=== PATIENT | female | born 2000 | race Two or more races ===

== ENCOUNTER 2024-11-24 09:47 | Emergency (ER) | payer OTHER ==
[~2024-11-24] VITALS: Ht 157.5 cm; Wt 81.2 kg
[2024-11-24] MEDS ORDERED: FAMOtidine 10 MG/ML (4ML VIAL) IV ONE (10:30)
[2024-11-24] MEDS ORDERED: ACETAMINOPHEN 500 MG GEL..CAP PO ONE ×2 (10:30→10:38)
[2024-11-24] MEDS ORDERED: 0.9 % SODIUM CHLORIDE 1,000 ML IV ONE (10:30)
[2024-11-24] MEDS ORDERED: FAMOTIDINE/PF 20 MG/2 ML VIAL ONE (10:38)
[2024-11-24 11:11] LABS: BASO % 0.2 % (0.1-1.2); EOS # 0.02 (0.04-0.54); EOS % 0.1 % (0.7-7.0); LYMPH # 0.74 (1.18-3.74); LYMPH % 5.0 % (19.3-53.1); MEAN PLATELET VOLUME 9.50 fl (9.4-12.4); MONO # 0.58 (0.24-0.82); MONO % 3.9 % (4.7-12.5); NEUT # 13.42 (1.56-6.13); NEUT % 90.4 % (34.0-71.1); RED CELL DISTRIBUTION WIDTH 11.9 % (11.6-14.4)
[2024-11-24 12:23] LABS: ALT/SGPT 22.0 U/L (12-78); AST/SGOT 22.0 U/L (15-37); BILIRUBIN TOTAL 0.98 mg/dL (0.3-1.2); BUN CREA RATIO 8.0 (7.0-25.0); CREATININE SERUM 0.77 mg/dL (0.55-1.02); GFR 92.1; GLOBULINA 3.6 G/DL (2.4-3.5); GLUCOSE FASTING 97.0 mg/dL (65-100); OSMOLALITY SERUM 277.0 MOSM/KG (275-295)
[2024-11-24 12:24] LABS: COVID-19 AG NEGATIVE (NEGATIVE)
[2024-11-24] MEDS ORDERED: PEPCID AC20 MG PO (14:55)
[2024-11-24] MEDS ORDERED: AMOX1TAB5 PO (14:55)
[2024-11-24] MEDS ORDERED: CEFTRIAXONE SODIUM 2,000 MG in 0.9 % SODIUM CHLORIDE 100 ML IV ONE (15:00)
[2024-11-24] MEDS ORDERED: CEFTRIAXONE SODIUM 2,000 MG VIAL ONE (15:21)
== END 2024-11-24 16:35 | disposition home or self-care (01) ==
LOC: ER 09:47
PROVIDERS: General Practice
DX: B34.9 Viral infection, unspecified (principal); J02.8 Acute pharyngitis due to other specified organisms; Z20.822 Contact with and (suspected) exposure to COVID-19

== ENCOUNTER 2024-11-27 23:51 | Emergency (ER) | payer OTHER ==
[~2024-11-27] VITALS: Ht 157.5 cm; Wt 81.6 kg
[~2024-11-27 23:51] MED LIST: AMOX1TAB5 PO; PEPCID AC20 MG PO
[2024-11-28 01:46] LABS: BASO % 0.3 % (0.1-1.2); EOS # 0.17 (0.04-0.54); EOS % 2.4 % (0.7-7.0); LYMPH # 2.13 (1.18-3.74); LYMPH % 30.4 % (19.3-53.1); MEAN PLATELET VOLUME 9.30 fl (9.4-12.4); MONO # 0.78 (0.24-0.82); MONO % 11.1 % (4.7-12.5); NEUT # 3.88 (1.56-6.13); NEUT % 55.5 % (34.0-71.1); RED CELL DISTRIBUTION WIDTH 11.7 % (11.6-14.4)
[2024-11-28 01:59] LABS: LYMPHOCYTE MAN 29.0 %; MONOCYTE MAN 11.0 %; NEUTROPHILS MAN 54.0 %
[2024-11-28 02:08] LABS: ALT/SGPT 28.0 U/L (12-78); AST/SGOT 27.0 U/L (15-37); BILIRUBIN TOTAL 0.27 mg/dL (0.3-1.2); BUN CREA RATIO 10.0 (7.0-25.0); CREATININE SERUM 0.71 mg/dL (0.55-1.02); GFR 101.13; GLOBULINA 3.3 G/DL (2.4-3.5); GLUCOSE FASTING 108.0 mg/dL (65-100); OSMOLALITY SERUM 283.0 MOSM/KG (275-295)
[2024-11-28 02:48] LABS: COVID-19 AG NEGATIVE (NEGATIVE)
[2024-11-28] MEDS ORDERED: CEFTRIAXONE SODIUM 1,000 MG VIAL IM STA (02:49)
[2024-11-28] MEDS ORDERED: METHYLPREDNISOLONE SOD SUCC 40 MG VIAL IM STA (02:50)
[2024-11-28] MEDS ORDERED: CEFTRIAXONE SODIUM 1,000 MG VIAL ONE (03:05)
[2024-11-28] MEDS ORDERED: METHYLPREDNISOLONE SOD SUCC 40 MG VIAL ONE (03:05)
== END 2024-11-28 03:33 | disposition home or self-care (01) ==
LOC: ER 23:51
PROVIDERS: Physician Assistant Medical
DX: J06.9 Acute upper respiratory infection, unspecified (principal); Z20.822 Contact with and (suspected) exposure to COVID-19

== ENCOUNTER 2024-12-29 16:05 | Emergency (ER) | payer OTHER ==
[~2024-12-29] VITALS: Ht 157.5 cm; Wt 81.2 kg
[2024-12-29 16:47] VITALS: BP 114/81; O2SAT 99
[2024-12-29] MEDS ORDERED: ACETAMINOPHEN 500 MG GEL..CAP PO ONE ×2 (17:00→19:26)
[2024-12-29] MEDS ORDERED: LIDOCAINE HCL VISCOUS 20MG/ML BLIST 15ML MM ONE ×2 (17:00→19:26)
[2024-12-29] MEDS ORDERED: METHYLPREDNISOLONE SOD SUCC 125 MG VIAL IV ONE (17:00)
[2024-12-29] MEDS ORDERED: METHYLPREDNISOLONE SOD SUCC 125 MG VIAL ONE (19:26)
[2024-12-29 19:59] LABS: BASO % 0.2 % (0.1-1.2); EOS # 0.01 (0.04-0.54); EOS % 0.1 % (0.7-7.0); LYMPH # 1.52 (1.18-3.74); LYMPH % 11.1 % (19.3-53.1); MEAN PLATELET VOLUME 9.30 fl (9.4-12.4); MONO # 0.97 (0.24-0.82); MONO % 7.1 % (4.7-12.5); NEUT # 11.10 (1.56-6.13); NEUT % 81.3 % (34.0-71.1); RED CELL DISTRIBUTION WIDTH 12.3 % (11.6-14.4)
[2024-12-29 20:23] LABS: ALT/SGPT 21.0 U/L (12-78); AST/SGOT 23.0 U/L (15-37); BILIRUBIN TOTAL 0.63 mg/dL (0.3-1.2); BUN CREA RATIO 7.0 (7.0-25.0); CREATININE SERUM 0.71 mg/dL (0.55-1.02); GFR 101.13; GLOBULINA 4.1 G/DL (2.4-3.5); GLUCOSE FASTING 83.0 mg/dL (65-100); OSMOLALITY SERUM 276.0 MOSM/KG (275-295)
[2024-12-29 20:27] LABS: COVID-19 AG NEGATIVE (NEGATIVE)
[2024-12-29 20:37] LABS: URINE APPEARANCE Cloudy; URINE BILIRRUBIN Negative (NEGATIVE); URINE BLOOD Small; URINE COLOR Yellow; URINE GLUCOSE Negative (NEGATIVE); URINE KETONE 15 (NEGATIVE); URINE LEUKOCYTE Small; URINE NITRATE Negative; URINE PROTEIN Trace (NEGATIVE); URINE UROBILINOGEN 1.0 E.U./dl
[2024-12-29 20:38] LABS: URINE EPITHELIAL CELLS 50.3 uL (0.0-38.8); URINE RBC 55.4 uL (0.0-20.8); URINE WBC 31.3 uL (0.0-23.2)
[2024-12-29 20:58] LABS: URINE CAST 0.14 uL (0.0-1.40)
[2024-12-29] MEDS ORDERED: CEFTRIAXONE SODIUM 1,000 MG VIAL IM ONE (21:00)
[2024-12-29 21:05] LABS: TYPE CELLS SQUAMOUS; URINE MUCUS MODERATE
[2024-12-29] MEDS ORDERED: AMOXICILLIN500 M1 PO (21:06)
[2024-12-29] MEDS ORDERED: AMOX-CLAV 875-1 EAC1 PO (21:10)
[2024-12-29] MEDS ORDERED: LIDOCAINE HCL/MPF 1% 5ML VIAL IJ ONE (21:28)
[2024-12-29] MEDS ORDERED: CEFTRIAXONE SODIUM 1,000 MG VIAL ONE (21:28)
== END 2024-12-29 22:25 | disposition home or self-care (01) ==
LOC: ER 16:05
DX: J02.9 Acute pharyngitis, unspecified (principal); R53.81 Other malaise; Z20.822 Contact with and (suspected) exposure to COVID-19